=== PATIENT | female | born 1985 | race Caucasian/White ===

== ENCOUNTER 2019-02-14 12:26 | Outpatient (CLI) | payer OTHER, SELFPAY ==
[~2019-02-14] VITALS: Ht 162.6 cm; Wt 73.5 kg
[2019-02-14 13:00] VITALS: BP 120/61
[2019-02-14] MEDS ORDERED: MIRA3350 PO (13:19)
[2019-02-14] MEDS ORDERED: PRENTAB9 PO (13:19)
[2019-02-14] MEDS ORDERED: VENTAER INH (13:19)
[2019-02-14] MEDS ORDERED: [UNRECOGNIZED DRUG - CODE] VA (13:19)
[2019-02-14] MEDS ORDERED: NYST1OIN TOP (13:19)
[2019-02-14] MEDS ORDERED: QVAR40AE12 INH (13:19)
[2019-02-14] MEDS ORDERED: KEFL500C17 PO ×2 (13:19→14:55)
[2019-02-14 14:03] VITALS: BP 101/56
== END 2019-02-14 14:26 | disposition home or self-care (01) ==
LOC: M LDO 12:26
PROVIDERS: ATTEND Obstetrics & Gynecology
DX: O26.893 Other specified pregnancy related conditions, third trimester (principal); Z3A.33 33 weeks gestation of pregnancy; O24.419 Gestational diabetes mellitus in pregnancy, unspecified control; O09.523 Supervision of elderly multigravida, third trimester; O99.333 Smoking (tobacco) complicating pregnancy, third trimester; O99.513 Diseases of the respiratory system complicating pregnancy, third trimester; Z87.442 Personal history of urinary calculi; J45.909 Unspecified asthma, uncomplicated; F17.210 Nicotine dependence, cigarettes, uncomplicated

== ENCOUNTER → 2019-02-24 | Outpatient (CLI) | payer OTHER ==
[~2019-02-24] MED LIST: KEFL500C17 PO; MIRA3350 PO; NYST1OIN TOP; PRENTAB9 PO; QVAR40AE12 INH; VENTAER INH; [UNRECOGNIZED DRUG - CODE] VA
--- NOTE | 2019-02-24 16:33 | REP ---
Obstetric sonography: History: 33 weeks gestation, gestational diabetes. growth study. Findings: Scanning through the gravid uterus demonstrates a viable cephalic intrauterine gestation. motion is observed and heart rate is recorded at 149 beats per minute. An anterofundal placenta is seen without evidence of abruption. Succenturiate lobe is observed connected by vasculature to the main lobe at the uterine fundus. Amniotic fluid is subjectively normal. No extrauterine abnormalities observed. spine and upper extremities are less than optimally seen. No anomaly is seen. The following anatomic structures are felt to be unremarkable: cranium, choroid plexus, cavum, cerebellum and posterior fossa, face and profile, lungs, four-chamber heart with left and right ventricular outflow tract views, diaphragm, left-sided stomach, abdominal wall cord insertion, three-vessel cord, kidneys and bladder. Biometry chart: BPD 8.3 cm = 33 weeks 2 days HC 31.3 cm = 35 weeks 0 days AC 29.3 cm 33 weeks 2 days FL 6.4 cm = 32 weeks 6 days HL 5.7 cm = 32 weeks 6 days HC/AC ratio normal 1.07. Cephalic index normal 0.72. Estimated weight 2172 grams, 4 pounds 12 ounces, 43rd percentile for 33 weeks 3 days. Impression: Viable single intrauterine gestation at 33 weeks 3 days by today's composite sonographic criteria. JUNE by today's sonography April 11, 2019. spine and upper extremities less than optimally seen. Succenturiate lobe of the placenta. Electronically Signed by Harvey Akins MD 02/24/2019 06:42 P
== END ==
LOC: M RAD 12:59
PROVIDERS: ATTEND Obstetrics & Gynecology
DX: O24.410 Gestational diabetes mellitus in pregnancy, diet controlled (principal); Z3A.33 33 weeks gestation of pregnancy; O43.193 Other malformation of placenta, third trimester

== ENCOUNTER → 2019-03-07 | Outpatient (REF) | payer OTHER ==
[~2019-03-07] MED LIST changes: +DIFL150T PO; +DOCU100C16 PO; +METF500T13 PO; +NYSTOI TOP; +PEG1POW PO
== END ==
LOC: M SFHCWAGY 09:56
PROVIDERS: ATTEND Obstetrics & Gynecology
DX: O24.419 Gestational diabetes mellitus in pregnancy, unspecified control (principal)

== ENCOUNTER 2019-03-14 09:22 | Inpatient (IN) | payer MEDICAID, OTHER ==
[~2019-03-14] VITALS: Ht 162.6 cm; Wt 74.9 kg
[2019-03-14] VITALS (17 sets, daily range): BP systolic 93–125; BP diastolic 51–76
[~2019-03-14 09:22] MED LIST changes: -DIFL150T PO; -DOCU100C16 PO; +METAMUCIL (PSYLLIUM) PACKET PO SCH; -METF500T13 PO; -NYSTOI TOP; -PEG1POW PO
[2019-03-14] MEDS ORDERED: NYSTOI TOP (09:53)
[2019-03-14] MEDS ORDERED: METF500T13 PO (10:15)
[2019-03-14] MEDS ORDERED: LR 1,000 ML IV SCH (10:53)
[2019-03-14] MEDS ORDERED: LACTATED RINGER'S 1000 ML IV STA (10:53)
[2019-03-14] MEDS ORDERED: NS 1,000 ML IV SCH (10:56)
[2019-03-14] MEDS ORDERED: OXYTOCIN DRIP 30 UNITS in IV 1 EA IV SCH (11:00)
[2019-03-14] MEDS ORDERED: INSULIN IV RATE CHANGE DOCUMENTATION ML/HR XX SCH (11:00)
[2019-03-14 11:31] LABS: HEMATOCRIT 30.6 % (36.0-47.0); MEAN CORPUSCULAR HEMOGLOBIN 32.3 pg (27.0-33.0); MEAN CORPUSCULAR HGB CONC 32.7 g/dl (32.0-36.5); MEAN CORPUSCULAR VOLUME 98.7 fl (80.0-96.0); PLATELET COUNT, AUTOMATED 395 10^3/uL (150-450); WHITE BLOOD COUNT 9.9 10^3/uL (4.0-10.0)
[2019-03-14] MEDS ORDERED: D5W/0.9% SODIUM CHLORIDE 1,000 ML IV SCH (12:00)
[2019-03-14] MEDS ORDERED: INSULIN HUMAN REGULAR 100 UNITS in NS 99 ML IV SCH (12:00)
[2019-03-14] MEDS: NS 1,000 ML IV SCH (15:32)
[2019-03-14] MEDS ORDERED: PROMETHAZINE 25 MG TAB PO ONE (16:15)
[2019-03-14] MEDS ORDERED: BUTORPHANOL 2 MG/ML INJ (J0595) IV ONE (16:30)
[2019-03-14] MEDS ORDERED: PROMETHAZINE INJ 25 MG/ML VIAL (J2550) IV ONE (16:30)
[2019-03-14 16:32] LABS: AMPHETAMINES URINE REFLEX NEGATIVE (NEGATIVE); BARBITURATES URINE REFLEX NEGATIVE (NEGATIVE); BENZODIAZEPINES URINE REFLEX NEGATIVE (NEGATIVE); CANNABINOIDS URINE REFLEX NEGATIVE (NEGATIVE); COCAINE METABOLITE URINE REFLE NEGATIVE (NEGATIVE); METHADONE URINE REFLEX NEGATIVE (NEGATIVE); OPIATES URINE REFLEX NEGATIVE (NEGATIVE); PHENCYCLIDINE URINE REFLEX NEGATIVE (NEGATIVE)
[2019-03-15] VITALS (15 sets, daily range): BP systolic 95–137; BP diastolic 54–75
[2019-03-15] MEDS: NS 1,000 ML IV SCH
[2019-03-15] MEDS ORDERED: PROMETHAZINE INJ 25 MG/ML VIAL (J2550) IV ONE ×2 (03:45→20:30)
[2019-03-15] MEDS ORDERED: BUTORPHANOL 2 MG/ML INJ (J0595) IV ONE ×2 (03:45→20:30)
[2019-03-15] MEDS ORDERED: LR 1,000 ML IV SCH (04:51)
[2019-03-15] MEDS ORDERED: OXYTOCIN DRIP 30 UNITS in IV 1 EA IV SCH ×2 (04:51→19:59)
[2019-03-15] MEDS ORDERED: ACETAMINOPHEN TAB 650MG DOSE (2X325MG) PO PRN (05:00)
[2019-03-15] MEDS ORDERED: ONDANSETRON 4MG/2ML VIAL (J2405) IV PRN (05:00)
[2019-03-15] MEDS ORDERED: MEASLES,MUMPS,RUBELLA VACCINE INJ (MMR-II) (90707) SC SCH (05:00)
[2019-03-15] MEDS ORDERED: ACETAMINOPHEN 500 MG TAB PO PRN (05:00)
[2019-03-15] MEDS ORDERED: PROMETHAZINE 25 MG TAB PO PRN (05:00)
[2019-03-15] MEDS ORDERED: RHOGAM 300 MCG (1500 IU) INJ (J2790) IM SCH (05:00)
[2019-03-15] MEDS ORDERED: IBUPROFEN 600 MG TAB PO PRN (05:00)
[2019-03-15] MEDS: IBUPROFEN 800 MG TAB PO PRN ×2 (06:15→14:19)
[2019-03-15] MEDS ORDERED: MIRALAX *UNIT DOSE* 17GM PACKET PO SCH (09:00)
[2019-03-15] MEDS: DIBUCAINE 1% OINTMENT 30GM TOP PRN (10:54)
[2019-03-15] MEDS: PRENATAL VITAMINS CHEWABLE TABLET PO SCH (10:54)
[2019-03-15] MEDS: MIRALAX *UNIT DOSE* 17GM PACKET PO SCH (14:17)
[2019-03-15] MEDS ORDERED: OXYTOCIN 30 UNITS IN 0.9% NaCl 500ML IV BAG (J2590) As Ordered ONE (18:13)
[2019-03-15] MEDS ORDERED: PROMETHAZINE INJ 25 MG/ML VIAL (J2550) As Ordered ONE (18:21)
[2019-03-15] MEDS ORDERED: BUTORPHANOL 2 MG/ML INJ (J0595) As Ordered ONE (18:22)
[2019-03-15] MEDS ORDERED: OXYTOCIN INJ 10 UNITS/ML VIAL (J2590) IM ONE (20:00)
[2019-03-15] MEDS ORDERED: miSOPROStol 200 MCG TAB (S0191) PR ONE (20:00)
[2019-03-15] MEDS ORDERED: METHYLERGONOVINE MALEATE 0.2 MG/ML VIAL (J2210) IM ONE (20:00)
[2019-03-15] MEDS: ACETAMINOPHEN 500 MG TAB PO PRN (21:45)
[2019-03-15] MEDS: DOCUSATE SODIUM 100 MG CAP PO PRN (22:25)
[2019-03-16] MEDS: IBUPROFEN 800 MG TAB PO PRN (01:30)
[2019-03-16] MEDS ORDERED: PERCOCET 5MG/325MG TAB PO ONE (04:15)
[2019-03-16 06:27] LABS: HEMATOCRIT 21.6 % (36.0-47.0); MEAN CORPUSCULAR HEMOGLOBIN 33.3 pg (27.0-33.0); MEAN CORPUSCULAR HGB CONC 33.8 g/dl (32.0-36.5); MEAN CORPUSCULAR VOLUME 98.6 fl (80.0-96.0); PLATELET COUNT, AUTOMATED 288 10^3/uL (150-450); RED BLOOD COUNT 2.19 10^6/uL (4.00-5.40); WHITE BLOOD COUNT 14.2 10^3/uL (4.0-10.0)
[2019-03-16 06:31] LABS: HEMOGLOBIN 7.3 g/dl (12.0-15.5)
[2019-03-16 06:40] VITALS: BP 107/67
[2019-03-16] MEDS ORDERED: KETOROLAC 30 MG/ML VIAL (J1885) IV SCH (08:00)
[2019-03-16] MEDS: PRENATAL VITAMINS CHEWABLE TABLET PO SCH (08:52)
[2019-03-16] MEDS: FERROUS SULFATE 325MG TAB PO SCH ×3 (08:53→21:00)
[2019-03-16] MEDS: MIRALAX *UNIT DOSE* 17GM PACKET PO SCH (08:53)
[2019-03-16 10:00] VITALS: BP 140/92
[2019-03-16] MEDS: IBUPROFEN 800 MG TAB PO SCH ×2 (10:15→18:05)
[2019-03-16 14:00] VITALS: BP 117/68
[2019-03-16] MEDS: ACETAMINOPHEN 500 MG TAB PO PRN (16:44)
[2019-03-16 18:00] VITALS: BP 119/70
[2019-03-16] MEDS: DOCUSATE SODIUM 100 MG CAP PO PRN (20:29)
[2019-03-16 22:00] VITALS: BP 101/58
[2019-03-17] MEDS: ACETAMINOPHEN 500 MG TAB PO PRN ×3 (00:04→16:18)
[2019-03-17 02:00] VITALS: BP 108/69
[2019-03-17] MEDS: IBUPROFEN 800 MG TAB PO SCH ×2 (02:35→09:25)
[2019-03-17 06:00] VITALS: BP 108/67
[2019-03-17] MEDS: PRENATAL VITAMINS CHEWABLE TABLET PO SCH (07:38)
[2019-03-17] MEDS: DIBUCAINE 1% OINTMENT 30GM TOP PRN (07:38)
[2019-03-17] MEDS ORDERED: PEG1POW PO (08:56)
[2019-03-17] MEDS ORDERED: DOCU100C16 PO (08:56)
[2019-03-17] MEDS: FERROUS SULFATE 325MG TAB PO SCH ×2 (09:00→16:00)
[2019-03-17] MEDS: MIRALAX *UNIT DOSE* 17GM PACKET PO SCH (09:25)
[2019-03-17 10:00] VITALS: BP 112/56
[2019-03-17] MEDS ORDERED: KEFL500C17 PO (11:00)
[2019-03-17] MEDS ORDERED: DIFL150T PO (11:01)
[2019-03-17 14:00] VITALS: BP 117/75
== END 2019-03-17 19:15 | disposition home or self-care (01) | DRG 560 ==
LOC: M LDI 09:22 → M OBS 03-15 09:09
PROVIDERS: ADMIT Obstetrics & Gynecology; ATTEND Obstetrics & Gynecology
PROC: 10E0XZZ Delivery of Products of Conception, External Approach (ICD-10-PCS; principal; 2019-03-15)
PROC: 3E033VJ Introduction of Other Hormone into Peripheral Vein, Percutaneous Approach (ICD-10-PCS; 2019-03-17)
DX: O24.429 Gestational diabetes mellitus in childbirth, unspecified control (principal); F17.200 Nicotine dependence, unspecified, uncomplicated; Z37.0 Single live birth; Z3A.37 37 weeks gestation of pregnancy; O99.334 Smoking (tobacco) complicating childbirth; O34.211 Maternal care for low transverse scar from previous cesarean delivery; O09.523 Supervision of elderly multigravida, third trimester; O09.30 Supervision of pregnancy with insufficient antenatal care, unspecified trimester

== ENCOUNTER → 2021-12-08 | Outpatient (REF) | payer MEDICAID, OTHER ==
[~2021-12-08] MED LIST changes: +DIFL150T PO; +DOCU100C16 PO; -METAMUCIL (PSYLLIUM) PACKET PO SCH; +METF500T13 PO; +NYST15OI4 TOP; -NYST1OIN TOP; +NYSTOI TOP; +POLY17PO18 PO
[2021-12-08 17:03] LABS: APPEARANCE, URINE MANUAL CLEAR (CLEAR); BILIRUBIN, URINE MANUAL NEGATIVE (NEGATIVE); COLOR, URINE MANUAL YELLOW (YELLOW); GLUCOSE, URINE (UA) MANUAL NEGATIVE (NEGATIVE); KETONE, URINE MANUAL NEGATIVE (NEGATIVE); PROTEIN, URINE MANUAL NEGATIVE (NEGATIVE); UROBILINOGEN, URINE MANUAL NORMAL (NORMAL)
[2021-12-08 17:04] LABS: BLOOD URINE MANUAL NEGATIVE (NEGATIVE); LEUKOCYTE ESTERASE, URINE MAN TRACE (NEGATIVE); NITRITE, URINE MANUAL NEGATIVE (NEGATIVE)
[2021-12-08 18:33] LABS: BACTERIA, URINE SMALL AMOUNT; HYALINE CAST, URINE NONE SEEN /lpf (0-1); RBC, URINE NONE SEEN /hpf (0-3); SQUAMOUS EPITHELIAL CELL URINE SMALL AMOUNT /hpf (SMALL AMT); WBC, URINE 0-1 /hpf (0-3)
[2021-12-08 18:35] LABS: MUCUS, URINE SMALL AMOUNT (NEGATIVE)
== END ==
LOC: M SMT 16:44
PROVIDERS: ATTEND Physician Assistant
DX: R35.0 Frequency of micturition (principal)

== ENCOUNTER → 2021-12-12 | Outpatient (CLI) | payer MEDICAID, OTHER | LOC: M RAD 12:36 | PROVIDERS: ATTEND Physician Assistant | DX: R35.0 Frequency of micturition (principal); N83.291 Other ovarian cyst, right side ==

== ENCOUNTER → 2022-04-22 | Outpatient (REF) | payer OTHER ==
[2022-04-22 14:39] LABS: APPEARANCE, URINE MANUAL CLEAR (CLEAR); COLOR, URINE MANUAL YELLOW (YELLOW)
[2022-04-22 14:41] LABS: BILIRUBIN, URINE MANUAL NEGATIVE (NEGATIVE); BLOOD URINE MANUAL NEGATIVE (NEGATIVE); GLUCOSE, URINE (UA) MANUAL NEGATIVE (NEGATIVE); KETONE, URINE MANUAL NEGATIVE (NEGATIVE); LEUKOCYTE ESTERASE, URINE MAN POSITIVE (NEGATIVE); NITRITE, URINE MANUAL NEGATIVE (NEGATIVE); PROTEIN, URINE MANUAL NEGATIVE (NEGATIVE); UROBILINOGEN, URINE MANUAL NORMAL (NORMAL)
[2022-04-22 14:50] LABS: BACTERIA, URINE SMALL AMOUNT; HYALINE CAST, URINE NONE SEEN /lpf (0-1); RBC, URINE NONE SEEN /hpf (0-3); SQUAMOUS EPITHELIAL CELL URINE SMALL AMOUNT /hpf (SMALL AMT)
== END ==
LOC: M SMT 13:07
PROVIDERS: ATTEND Physician Assistant
DX: R30.0 Dysuria (principal)

== ENCOUNTER 2022-08-29 16:20 | Emergency (ER) | payer OTHER ==
[~2022-08-29] VITALS: Ht 162.6 cm; Wt 72.7 kg
[~2022-08-29 16:20] MED LIST changes: +NYST100085 TOP; -NYSTOI TOP
[2022-08-29] MEDS ORDERED: SYMB16INH (16:34)
[2022-08-29] MEDS ORDERED: SPIR1AER (16:34)
[2022-08-29] MEDS ORDERED: EPIP0.3I2 (16:34)
[2022-08-29] MEDS ORDERED: PRED20TA (16:34)
[2022-08-29] MEDS ORDERED: MOME50SP2 (16:34)
[2022-08-29 18:00] VITALS: BP 118/64
== END 2022-08-29 18:25 | disposition home or self-care (01) ==
LOC: M ED 16:20 → EDBD 16:20 → M ED 18:25
DX: J45.901 Unspecified asthma with (acute) exacerbation (principal); F17.200 Nicotine dependence, unspecified, uncomplicated; Z79.899 Other long term (current) drug therapy; Z91.018 Allergy to other foods; Z91.011 Allergy to milk products; Z88.6 Allergy status to analgesic agent; Z88.8 Allergy status to other drugs, medicaments and biological substances; Z88.5 Allergy status to narcotic agent; Z91.040 Latex allergy status; Z91.010 Allergy to peanuts

== ENCOUNTER → 2022-12-24 | Outpatient (CLI) | payer OTHER ==
[~2022-12-24] MED LIST changes: +CLAR10CA3 PO; +EPIP0.3I2; +FLORCAP10; +MOME50SP2; +PRED20TA; +PRED20TA PO; +SPIR1AER; +SYMB16INH; +VIBE75TA
== END ==
LOC: M RAD 13:20
PROVIDERS: ATTEND Nurse Practitioner Family
DX: J45.30 Mild persistent asthma, uncomplicated (principal); R06.02 Shortness of breath; F17.210 Nicotine dependence, cigarettes, uncomplicated

== ENCOUNTER 2023-06-25 07:39 | Day surgery (SDC) | payer OTHER ==
[~2023-06-25] VITALS: Ht 162.6 cm; Wt 74.8 kg
[~2023-06-25 07:39] MED LIST changes: +BACI1CAP4 PO; -EPIP0.3I2; +EPIP0.3I2 INH; -FLORCAP10; +FLORCAP10 PO; +FLUT12AE2 INH; +IBUP1TAB7 PO; +LEVOTAB10 PO; +ONDA-84 PO; +PANT40TA29 PO; -VIBE75TA; +VIBE75TA PO
[2023-06-25] MEDS ORDERED: LR 1,000 ML IV SCH (08:10)
[2023-06-25] MEDS ORDERED: LIDOCAINE 2% 100MG/5ML SDV (FOR ANES.) As Ordered ONE (09:26)
[2023-06-25] MEDS ORDERED: propofoL 200 MG/20 ML VIAL As Ordered ONE (09:26)
[2023-06-25] MEDS ORDERED: fentaNYL 250 MCG/5 ML INJECTION As Ordered ONE (09:26)
[2023-06-25] MEDS ORDERED: ONDANSETRON 4MG 2ML VIAL As Ordered ONE (09:26)
[2023-06-25] MEDS ORDERED: MIDAZOLAM INJ 2MG/2ML VIAL As Ordered ONE (09:27)
[2023-06-25] MEDS ORDERED: ROCURONIUM BROMIDE 50MG/5ML VIAL As Ordered ONE (09:30)
[2023-06-25] MEDS ORDERED: dexmedeTOMIDine (4MCG/ML)200MCG/50ML BTL (PRECEDEX) As Ordered ONE (09:54)
[2023-06-25] MEDS ORDERED: SUGAMMADEX SODIUM 500 MG/5 ML VIAL (BRIDION) As Ordered ONE (10:39)
[2023-06-25] MEDS ORDERED: ACETAMINOPHEN 1000MG 100ML IV BAG As Ordered ONE (10:40)
[2023-06-25] MEDS ORDERED: KETOROLAC 60MG 2ML VIAL As Ordered ONE (10:58)
[2023-06-25] MEDS ORDERED: fentaNYL 100 MCG/2 ML INJECTION IV PRN (11:10)
[2023-06-25] MEDS: oxyCODONE 5MG TAB PO PRN (11:35)
[2023-06-25] MEDS: LR 1,000 ML IV SCH (11:35)
[2023-06-25] MEDS: HYDROMORPHONE HCL 0.5 MG/ 0.5 ML SYRINGE IV PRN (11:35)
[2023-06-25] MEDS ORDERED: NORCO, ANEXSIA 5/325MG TABLET (HYDROcodone/ACETAMINOPHEN) PO PRN (12:00)
[2023-06-25] MEDS: ONDANSETRON 4MG 2ML VIAL IV PRN (12:07)
[2023-06-25 12:25] VITALS: BP 109/62; TEMP 98.3; O2SAT 99
== END 2023-06-25 13:25 | disposition home or self-care (01) ==
LOC: M SDC 07:39
PROVIDERS: ATTEND Surgery
DX: K80.10 Calculus of gallbladder with chronic cholecystitis without obstruction (principal); J45.909 Unspecified asthma, uncomplicated; R56.9 Unspecified convulsions; R73.03 Prediabetes; Z79.899 Other long term (current) drug therapy; K58.9 Irritable bowel syndrome, unspecified; F17.210 Nicotine dependence, cigarettes, uncomplicated; Z88.8 Allergy status to other drugs, medicaments and biological substances; Z88.5 Allergy status to narcotic agent; Z88.6 Allergy status to analgesic agent; Z91.011 Allergy to milk products; Z91.010 Allergy to peanuts; Z91.018 Allergy to other foods
CPT/HCPCS: 47562; 81025; 88304; J0131; J0665; J1100; J1170; J1885; J2250; J2405; J3010; S2900

== ENCOUNTER → 2023-07-07 | Outpatient (CLI) | payer OTHER ==
[2023-07-07 12:41] LABS: BASO # 0.1 10^3/uL (0.0-0.2); EOS # 0.5 10^3/uL (0.0-0.5); EOS % 6.3 % (0.0-3.0); HEMATOCRIT 39.7 % (36.0-47.0); LYMPH # 2.6 10^3/uL (1.5-5.0); LYMPH % 35.8 % (24.0-44.0); MEAN CORPUSCULAR HEMOGLOBIN 31.6 pg (27.0-33.0); MEAN CORPUSCULAR HGB CONC 32.7 g/dl (32.0-36.5); MEAN CORPUSCULAR VOLUME 96.6 fl (80.0-96.0); MONO # 0.4 10^3/uL (0.0-0.8); MONO % 5.8 % (2.0-8.0); NEUTROPHILS # 3.7 10^3/uL (1.5-8.5); PLATELET COUNT, AUTOMATED 334 10^3/uL (150-450); RED BLOOD COUNT 4.11 10^6/uL (4.00-5.40); WHITE BLOOD COUNT 7.3 10^3/uL (4.0-10.0)
[2023-07-07 12:44] LABS: APPEARANCE, URINE CLEAR (CLEAR); BACTERIA, URINE AUTO NEGATIVE (NEGATIVE); BILIRUBIN, URINE AUTO NEGATIVE (NEGATIVE); BLOOD, URINE BLOOD NEGATIVE (NEGATIVE); COLOR, URINE STRAW (YELLOW); GLUCOSE, URINE (UA) AUTO NEGATIVE (NEGATIVE); KETONE, URINE AUTO NEGATIVE (NEGATIVE); LEUKOCYTE ESTERASE, URINE AUTO NEGATIVE (NEGATIVE); NITRITE, URINE AUTO NEGATIVE (NEGATIVE); PROTEIN, URINE AUTO NEGATIVE (NEGATIVE); RBC, URINE AUTO 0 /HPF (0-3); SPECIFIC GRAVITY URINE AUTO 1.003 (1.002-1.035); SQUAMOUS EPITHELIAL CELL UR AU 1 /HPF (0-6); UROBILINOGEN, URINE AUTO 0.2 mg/dL (0.0-2.0); WBC, URINE AUTO 0 /HPF (0-3)
[2023-07-07 12:59] LABS: ALBUMIN 3.8 G/DL (3.2-5.2); ALKALINE PHOSPHATASE 91 U/L (46-116); ALT/SGPT 17 U/L (7.0-40); AST/SGOT 10 U/L (<34); BILIRUBIN,TOTAL 0.5 MG/DL (0.3-1.2); BLOOD UREA NITROGEN 7 MG/DL (9-23); CALCIUM LEVEL 9.4 MG/DL (8.5-10.1); CARBON DIOXIDE LEVEL 30 MMOL/L (20-31); CHLORIDE LEVEL 106 MMOL/L (98-107); CREATININE FOR GFR 0.57 MG/DL (0.55-1.30); GLOMERULAR FILTRATION RATE > 60.0 (>60); GLUCOSE, FASTING 81 MG/DL (60-100); POTASSIUM SERUM 4.2 MMOL/L (3.5-5.1); SODIUM LEVEL 141 MMOL/L (136-145)
== END ==
LOC: M RAD 12:12
PROVIDERS: ATTEND Physician Assistant
DX: R93.5 Abnormal findings on diagnostic imaging of other abdominal regions, including retroperitoneum (principal); R10.11 Right upper quadrant pain; R63.0 Anorexia

== ENCOUNTER 2023-09-30 14:31 | Emergency (ER) | payer OTHER ==
[~2023-09-30] VITALS: Ht 162.6 cm; Wt 81.7 kg
[2023-09-30 14:50] VITALS: TEMP 97.2
[2023-09-30 15:37] LABS: BASO % 0.3 % (0.0-1.0); EOS # 0.1 10^3/uL (0.0-0.5); EOS % 0.9 % (0.0-3.0); HEMATOCRIT 34.8 % (36.0-47.0); HEMOGLOBIN 11.4 g/dl (12.0-15.5); LYMPH # 1.5 10^3/uL (1.5-5.0); MEAN CORPUSCULAR HEMOGLOBIN 31.9 pg (27.0-33.0); MEAN CORPUSCULAR HGB CONC 32.8 g/dl (32.0-36.5); MEAN CORPUSCULAR VOLUME 97.5 fl (80.0-96.0); MONO # 0.6 10^3/uL (0.0-0.8); MONO % 4.8 % (2.0-8.0); NEUTROPHILS # 9.4 10^3/uL (1.5-8.5); NEUTROPHILS % 80.4 % (36.0-66.0); PLATELET COUNT, AUTOMATED 259 10^3/uL (150-450); RED BLOOD COUNT 3.57 10^6/uL (4.00-5.40); WHITE BLOOD COUNT 11.7 10^3/uL (4.0-10.0)
[2023-09-30] MEDS: NORCO, ANEXSIA 5/325MG TABLET (HYDROcodone/ACETAMINOPHEN) PO ONE (15:40)
[2023-09-30 16:08] LABS: ALBUMIN 3.2 G/DL (3.2-5.2); ALKALINE PHOSPHATASE 92 U/L (46-116); ALT/SGPT 75 U/L (7.0-40); AST/SGOT 119 U/L (<34); BILIRUBIN,DIRECT 0.1 MG/DL (<0.4); BILIRUBIN,TOTAL 0.4 MG/DL (0.3-1.2); BLOOD UREA NITROGEN 10 MG/DL (9-23); CALCIUM LEVEL 8.6 MG/DL (8.5-10.1); CARBON DIOXIDE LEVEL 26 MMOL/L (20-31); CHLORIDE LEVEL 107 MMOL/L (98-107); CK-MB VALUE MASS < 1.0 NG/ML (<3.6); CPK CREATINE PHOSPHOKINASE 112 U/L (34-145); CREATININE FOR GFR 0.54 MG/DL (0.55-1.30); GLOMERULAR FILTRATION RATE > 60.0 (>60); GLUCOSE, FASTING 101 MG/DL (60-100); LIPASE 35 U/L (12-53); MB/CK RELATIVE INDEX 0.89 (< OR =4); SODIUM LEVEL 138 MMOL/L (136-145); TOTAL PROTEIN 6.2 G/DL (5.7-8.2)
[2023-09-30] MEDS ORDERED: ISOVUE-370 76% 100ML VIAL As Ordered ONE (16:53)
[2023-09-30 17:30] VITALS: BP 136/82
[2023-09-30] MEDS: MORPHINE 2 MG/ML 1ML VIAL IV ONE (17:37)
[2023-09-30] MEDS ORDERED: BENZ200C70 PO (18:26)
[2023-09-30 18:30] VITALS: O2SAT 100
[2023-09-30] MEDS: ONDANSETRON 4MG ORAL DISINTEGRATING TAB PO ONE (18:33)
== END 2023-09-30 18:38 | disposition home or self-care (01) ==
LOC: M ED 14:31
DX: S20.219A Contusion of unspecified front wall of thorax, initial encounter (principal); R06.02 Shortness of breath; R05.9 Cough, unspecified; F17.200 Nicotine dependence, unspecified, uncomplicated; K58.9 Irritable bowel syndrome, unspecified; J45.909 Unspecified asthma, uncomplicated; Z88.6 Allergy status to analgesic agent; Z88.5 Allergy status to narcotic agent; Z91.011 Allergy to milk products; Z91.040 Latex allergy status; Z91.010 Allergy to peanuts; Z91.018 Allergy to other foods; Z79.52 Long term (current) use of systemic steroids; Z79.1 Long term (current) use of non-steroidal anti-inflammatories (NSAID); Z79.83 Long term (current) use of bisphosphonates; Z79.899 Other long term (current) drug therapy; Y92.9 Unspecified place or not applicable; Y93.89 Activity, other specified; Y99.9 Unspecified external cause status

== ENCOUNTER → 2024-06-16 | Outpatient (CLI) | payer OTHER ==
[~2024-06-16] MED LIST changes: +BENZ200C70 PO
== END ==
LOC: M PLARAD 09:26
PROVIDERS: ATTEND Podiatrist Foot & Ankle Surgery
DX: S86.311A Strain of muscle(s) and tendon(s) of peroneal muscle group at lower leg level, right leg, initial encounter (principal); X50.3XXA Overexertion from repetitive movements, initial encounter